=== PATIENT | male | born 1975 | race Two or more races ===

== ENCOUNTER 2022-02-22 12:47 | Emergency (ER) | payer SELFPAY ==
[2022-02-22 14:34] LABS: ESTIMATED GFR 95 mL/min (>60)
[2022-02-24 11:15] LABS: ANA DIRECT Positive (Negative); ANTI-CENTROMERE B ANTIBODIES <0.2 AI (0.0-0.9); ANTI-DNA (DS) AB QN 4 IU/mL (0-9); ANTI-JO-1 <0.2 AI (0.0-0.9); ANTICHROMATIN ANTIBODIES 6.4 AI (0.0-0.9); ANTIRIBOSOMAL P ANTIBODIES <0.2 AI (0.0-0.9); ANTISCLERODERMA-70 ANTIBODIES <0.2 AI (0.0-0.9); RNP ANTIBODIES <0.2 AI (0.0-0.9); SJOGREN'S ANTI-SS-A <0.2 AI (0.0-0.9); SJOGREN'S ANTI-SS-B <0.2 AI (0.0-0.9); SMITH ANTIBODIES <0.2 AI (0.0-0.9); SMITH/RNP ANTIBODIES <0.2 AI (0.0-0.9)
== END 2022-02-22 16:16 | disposition home or self-care (01) ==
LOC: JP.ED 12:47
DX: M06.4 Inflammatory polyarthropathy (principal)
CPT/HCPCS: 36415; 80053; 83516; 84443; 84550; 85025; 85651; 86038; 86140; 86200; 86225; 86235; 86431; 86618; 99283